=== PATIENT | male | born 1970 | race African-American/Black ===

== ENCOUNTER 2018-12-01 22:24 | Emergency (ER) | payer OTHER ==
[~2018-12-01] VITALS: Ht 182.9 cm; Wt 97.5 kg
[2018-12-01 22:35] VITALS: BP_SYST 161
[2018-12-02] MEDS ORDERED: ACETAMINOPHEN 325 MG TABLET PO ONE (07:15)
[2018-12-02 07:23] VITALS: BP_SYST 150
== END 2018-12-02 07:23 | disposition home or self-care (01) ==
LOC: SED 22:24
DX: B35.1 Tinea unguium (principal); F31.9 Bipolar disorder, unspecified
CPT/HCPCS: 99283

== ENCOUNTER 2018-12-06 02:47 | Emergency (ER) | payer OTHER ==
[~2018-12-06] VITALS: Ht 177.8 cm; Wt 90.7 kg
[2018-12-06 03:00] VITALS: BP_SYST 142
--- NOTE | 2018-12-06 03:01 | NUR ---
Patient to ER bed 5 to gown for evaluation. Side rails up.
--- NOTE | 2018-12-06 03:05 | NUR ---
Pt BIB BLS for medical evaluation. Pt states he is homeless, wants help with being placed on pyschiatric medication and and discharge planning. Reports auditory halucinations be does not have suicidal or homicidal ideations. Pt denies any medical problems at this time. Vital signs are stable, will continue to monitor.
--- NOTE | 2018-12-06 03:51 | NUR ---
HARITHA Pritchett at bedside examining patient.
--- NOTE | 2018-12-06 05:00 | NUR ---
Pt is resting in bed, no acute distress noted at this time.
--- NOTE | 2018-12-06 06:10 | NUR ---
Pt is sleeping no acute distress noted at this time. Will continue to monitor.
--- NOTE | 2018-12-06 06:46 | NUR ---
Patient given written and verbal discharge instructions and verbalizes understanding. ER MD discussed with patient the results and treatment provided. Patient in stable condition. ID arm band removed. Patient educated on pain management and to follow up with PMD. Pain Scale 0/10. Opportunity for questions provided and answered. Medication side effect fact sheet provided.
[2018-12-06 06:47] VITALS: BP_SYST 135
--- NOTE | 2018-12-06 06:49 | NUR ---
Erick neff in [facility] - 12/06/18 at 0651 by [email or web address] Pt has been discharged. Pt is homeless meal, list of resources, weather appropriate clothing, and transportation upon discharge
--- NOTE | 2018-12-06 06:51 | NUR ---
Pt has been discharged but is awaiting taxi. Pt is homeless meal, list of resources, weather appropriate clothing, and transportation upon discharge
--- NOTE | 2018-12-06 07:07 | NUR ---
Pt was escorted to the taxi cab, nettles thakur given to trailer truck driver directly.
== END 2018-12-06 06:47 | disposition home or self-care (01) ==
LOC: SED 02:47
DX: F32.9 Major depressive disorder, single episode, unspecified (principal); F20.9 Schizophrenia, unspecified; Z59.0 Homelessness
CPT/HCPCS: 99283; 99284